=== PATIENT | female | born 1935 | race Caucasian/White ===

== ENCOUNTER 2016-12-19 11:30 | Observation (INO) | payer MEDICARE, BC ==
[2016-12-19] MEDS ORDERED: SODIUM CHLORIDE 0.9% 1,000 ML IV STA (11:44)
[2016-12-19 11:58] LABS: Glucose,Whole Blood 104 mg/dL (75-99)
--- NOTE | 2016-12-19 11:58 | ED ---
General Adult HPI - General Chief complaint: Syncope Stated complaint: Unresponsive Time Seen by Provider: 12/19/16 11:44 Source: patient, family, EMS, RN notes reviewed Mode of arrival: EMS Limitations: no limitations - History of Present Illness Initial comments: Chief complaint and history of present illness an 81-year-old female who was brought emergency room because of syncopal episode. The patient reports she took medications this morning including metoprolol. Medication that she's been taken for bladder issues is Myrbetric. She states that she is to the medications had had a and started to feel weak. Her friend was with her states that she became diaphoretic and passed out. No seizure activity. The patient did not fall is no injury. EMS was called and found her blood pressure to be 60/43 started an IV gave her one half liters prior to coming to the emergency room. The patient also had her blood sugar checked it was 116. This be repeated here. The patient does not have history of diabetes she does have hypertension. This time the patient's feeling better. No pain to the patient have headache, no complaint of palpitations or chest pain or chest pressure. Review of Systems ROS Statement: Those systems with pertinent positive or pertinent negative responses have been documented in the HPI. Review of systems. The patient reports is the third time she has syncopal episode the first time she was on lisinopril. Second time she was on metoprolol. Each time the pain similar to this. At this time the patient's complaining any visual acuity changes no headache no chest pain no palpitations no shortness of breath no GI/ complications at this time. No evidence or complaints of any neuro deficits. All systems are reviewed Past medical problems significant for 2 other syncopal episodes. More recently the patient had intestinal obstruction with surgery and a colostomy bag just 2 months ago. He is on Coumadin because of a DVT that developed while in hospital 2 months ago for intestinal obstruction, which had ruptured. She became septic 2 weeks later which necessitated a second surgery while she was in [place]. Recently the patient physician put her on Myrbetric because of frequency of urination. Other surgeries include appendectomy and hysterectomy, carpal tunnel surgery as well. She's also had cataract surgery. Family history includes mother who had bladder and skin cancer. ALLERGIES; sulfa. The patient will stop the Myrbetric as it may have caused the metoprolol to become more effective in slowing her heart rate and decreased air blood pressure to the point of syncope. The patient was on metoprolol for her second syncopal episode but not her first. Cardiology will be consulted ROS Other: All systems not noted in ROS Statement are negative. Past Medical History Past Medical History: Hypertension, Osteoarthritis (OA) Additional Past Medical History / Comment(s): urinary incontinence, blood clot in right arm History of Any Multi-Drug Resistant Organisms: None Reported Additional Past Surgical History / Comment(s): perforated bowel with colostomy placement 09/09, knee surgery Past Psychological History: No Psychological Hx Reported Smoking Status: Never smoker Past Alcohol Use History: None Reported Past Drug Use History: None Reported General Exam - General Exam Comments Initial Comments: General: The patient is awake and alert, states she is feeling better now. Earlier she has syncopal episode preceded by feeling like she was in a tunnel became diaphoretic and then passed out. Did not hurt herself. No complaint of headache. Vital signs upon arrival to emergency room showed a blood pressure 123/69, pulse 60 respiratory rate 18 pulse ox 97% on 2 L. Blood sugar at bedside 105. In the field was reported to be 113. Eye: Pupils are equal, round and reactive to light, extra-ocular movements are intact ; there is normal conjunctiva bilaterally. No signs of icterus. Evidence of cataract surgery. Ears, nose, mouth and throat: There are moist mucous membranes and no oral lesions. Neck: The neck is supple, there is no tenderness , no JVD, no carotid bruit. Cardiovascular: There is a regular rate and rhythm. No murmur, rub or gallop is appreciated. Respiratory: Lungs are clear to auscultation, respirations are non-labored, breath sounds are equal. No wheezes, stridor, rales, or rhonchi. Gastrointestinal: Soft, non-distended, non-tender abdomen without masses or organomegaly noted. There is no rebound or guarding present. Patient has a functioning colostomy bag. No increase stool production, no vomiting. Back: There is no tenderness to palpation in the midline. There is no obvious deformity. No rashes noted. Musculoskeletal: Normal ROM, no tenderness, There is no pedal edema. There is no calf tenderness or swelling. Sensation intact. Pulses equal bilaterally 2+. Neurological: CN II-XII intact, There are no obvious motor or sensory deficits. Coordination appears grossly intact. Speech is normal. No focal or lateralizing findings Skin: Skin is warm and dry and no rashes or lesions are noted. Limitations: no limitations Course Vital Signs 12/19/16 11:37 Temperature 95.3 F L Pulse Rate 60 Respiratory 18 Rate Blood Pressure 123/64 O2 Sat by Pulse 97 Oximetry EKG Findings - EKG Comments: EKG Findings:: EKG was done and reviewed at 1205 showing normal sinus rhythm no acute ST elevation no ectopy no ischemic changes. Rate 63 NE interval is 162 QRS 82 QT [address] Sheldon Medical Decision Making - Medical Decision Making Medical decision-making. The patient remains alert and oriented while in emergency room. Labs show white count 6.2 hemoglobin 10.9 hematocrit 33. INR is 2.8. The patient is on Coumadin because of a DVT left arm vein that occurred approximately 2 months ago. The patient's potassium is 5.7 , BUN 33 creatinine 0.7 and GFR greater than 60. Glucose 104 The case discussed with Dr. Soriano is not on-call for Dr. Brown. Patient be admitted to his service with consultation from cardiology. - Lab Data Result diagrams: 12/19/16 11:49 12/19/16 11:49 Lab Results 12/19/16 12/19/16 12/19/16 Range/Units 11:49 11:49 11:49 WBC 6.2 (3.8-10.6) k/uL RBC 3.63 L (3.80-5.40) m/uL Hgb 10.9 L (11.4-16.0) gm/dL Hct 33.6 L (34.0-46.0) % MCV 92.6 (80.0-100.0) fL MCH 29.9 (25.0-35.0) pg MCHC 32.3 (31.0-37.0) g/dL RDW 15.3 (11.5-15.5) % Plt Count 272 (150-450) k/uL Neutrophils % 60 % Lymphocytes % 28 % Monocytes % 6 % Eosinophils % 3 % Basophils % 1 % Neutrophils # 3.7 (1.3-7.7) k/uL Lymphocytes # 1.7 (1.0-4.8) k/uL Monocytes # 0.3 (0-1.0) k/uL Eosinophils # 0.2 (0-0.7) k/uL Basophils # 0.1 (0-0.2) k/uL PT 26.5 H (9.0-12.0) sec INR 2.8 (<1.1) APTT 30.9 H (22.0-30.0) sec Sodium 139 (137-145) mmol/L Potassium 5.7 H (3.5-5.1) mmol/L Chloride 108 H (98-107) mmol/L Carbon Dioxide 26 (22-30) mmol/L Anion Gap 5 mmol/L BUN 33 H (7-17) mg/dL Creatinine 0.70 (0.52-1.04) mg/dL Est GFR (MDRD) Af Amer >60 (>60 ml/min/1.73 sqM) Est GFR (MDRD) Non-Af >60 (>60 ml/min/1.73 sqM) Glucose 96 (74-99) mg/dL POC Glucose (mg/dL) (75-99) mg/dL POC Glu Crayon Grader ID Calcium 9.1 (8.4-10.2) mg/dL Magnesium 1.9 (1.6-2.3) mg/dL Total Bilirubin 0.7 (0.2-1.3) mg/dL AST 68 H (14-36) U/L ALT 52 (9-52) U/L Alkaline Phosphatase 111 (38-126) U/L Total Protein 6.6 (6.3-8.2) g/dL Albumin 3.4 L (3.5-5.0) g/dL 12/19/16 Range/Units 11:57 WBC (3.8-10.6) k/uL RBC (3.80-5.40) m/uL Hgb (11.4-16.0) gm/dL Hct (34.0-46.0) % MCV (80.0-100.0) fL MCH (25.0-35.0) pg MCHC (31.0-37.0) g/dL RDW (11.5-15.5) % Plt Count (150-450) k/uL Neutrophils % % Lymphocytes % % Monocytes % % Eosinophils % % Basophils % % Neutrophils # (1.3-7.7) k/uL Lymphocytes # (1.0-4.8) k/uL Monocytes # (0-1.0) k/uL Eosinophils # (0-0.7) k/uL Basophils # (0-0.2) k/uL PT (9.0-12.0) sec INR (<1.1) APTT (22.0-30.0) sec Sodium (137-145) mmol/L Potassium (3.5-5.1) mmol/L Chloride (98-107) mmol/L Carbon Dioxide (22-30) mmol/L Anion Gap mmol/L BUN (7-17) mg/dL Creatinine (0.52-1.04) mg/dL Est GFR (MDRD) Af Amer (>60 ml/min/1.73 sqM) Est GFR (MDRD) Non-Af (>60 ml/min/1.73 sqM) Glucose (74-99) mg/dL POC Glucose (mg/dL) 104 H (75-99) mg/dL POC Glu Crayon Grader ID Sheila Jimenez Calcium (8.4-10.2) mg/dL Magnesium (1.6-2.3) mg/dL Total Bilirubin (0.2-1.3) mg/dL AST (14-36) U/L ALT (9-52) U/L Alkaline Phosphatase (38-126) U/L Total Protein (6.3-8.2) g/dL Albumin (3.5-5.0) g/dL Disposition Clinical Impression: Syncope due to orthostatic hypotension Disposition: ADMITTED IP TO THIS HOSP Condition: Fair
[2016-12-19 12:17] LABS: Basophils # (A) 0.1 k/uL (0-0.2); Basophils % (A) 1 %; CH 29.7; CHCM 32.3; Eosinophils # (A) 0.2 k/uL (0-0.7); Eosinophils % (A) 3 %; HCT 33.6 % (34.0-46.0); HDW 2.39; HGB 10.9 gm/dL (11.4-16.0); Luc # (Auto) 0.21; Luc % (Auto) 3; Lymphocytes # (A) 1.7 k/uL (1.0-4.8); Lymphocytes % (A) 28 %; MCH 29.9 pg (25.0-35.0); MCHC 32.3 g/dL (31.0-37.0); MCV 92.6 fL (80.0-100.0); Mean Platelet Volume 6.8; Monocytes # (A) 0.3 k/uL (0-1.0); Monocytes % (A) 6 %; Neutrophils # (A) 3.7 k/uL (1.3-7.7); Neutrophils % (A) 60 %; RBC 3.63 m/uL (3.80-5.40); RDW 15.3 % (11.5-15.5); WBC 6.2 k/uL (3.8-10.6); WBC (Perox) 6.39
[2016-12-19 12:21] LABS: INR 2.8 (<1.1); Partial Thromboplastin Time 30.9 sec (22.0-30.0); Prothrombin Time 26.5 sec (9.0-12.0)
[2016-12-19 12:23] LABS: ALT 52 U/L (9-52); AST 68 U/L (14-36); Alkaline Phosphatase 111 U/L (38-126); Anion Gap 5 mmol/L; Blood Urea Nitrogen 33 mg/dL (7-17); Calcium 9.1 mg/dL (8.4-10.2); Carbon Dioxide 26 mmol/L (22-30); Chloride 108 mmol/L (98-107); Glucose 96 mg/dL (74-99); Magnesium 1.9 mg/dL (1.6-2.3); Non-African American GFR(MDRD) >60 (>60 ml/min/1.73 sqM); Potassium 5.7 mmol/L (3.5-5.1); Sodium 139 mmol/L (137-145); Total Bilirubin 0.7 mg/dL (0.2-1.3); Total Protein 6.6 g/dL (6.3-8.2)
--- NOTE | 2016-12-19 12:34 | XR ---
EXAMINATION TYPE: XR chest 2V DATE OF EXAM: 12/19/2016 12:28 PM COMPARISON: NONE HISTORY: Syncope and weakness. TECHNIQUE: Frontal and lateral views of the chest are obtained. FINDINGS: There is patchy left basilar linear atelectasis on frontal view. There is small right pleu ral effusion. The cardiac silhouette size is within normal limits. The osseous structures are some what demineralized. IMPRESSION: Small right pleural effusion felt present. Patchy left basilar linear atelectasis is not ed.
[2016-12-19 12:49] LABS: Creatine Kinase 20 U/L (30-135)
[2016-12-19] MEDS ORDERED: NALOXONE 0.4 MG/ML 1 ML VIAL IV PRN (12:50)
[2016-12-19] MEDS ORDERED: ACETAMINOPHEN TAB 325 MG TAB PO PRN (12:50)
[2016-12-19] MEDS ORDERED: SODIUM CHLORIDE 0.9% 1,000 ML IV SCH (13:00)
[2016-12-19 13:02] LABS: Creatine Kinase MB 0.5 ng/mL (0.0-2.4); Troponin I <0.012 ng/mL (0.000-0.034)
[2016-12-19] MEDS ORDERED: DOCUSATE 100 MG CAP PO PRN (15:31)
[2016-12-19] MEDS ORDERED: traMADol 50 MG TAB PO PRN (15:31)
[2016-12-19] MEDS ORDERED: ESTRADIOL 0.5 MG TAB PO SCH (16:00)
--- NOTE | 2016-12-19 17:34 | HP ---
DATE OF ADMISSION: Patient is a very pleasant 81-year-old female, who came into the hospital with an episode of syncope. Patient was talking to someone and at that time patient felt dizzy, lightheaded and patient apparently was told she is pale and diaphoretic and patient had a syncopal episode. Patient was found to have low blood pressure and bradycardia as per the ER physician, although it was not documented here anywhere. Patient was subsequently admitted for syncopal episode. Patient denied any fevers, chills, nausea, vomiting, diarrhea. Patient's chest x-ray did not show any significant abnormality. Of note, I was told that patient had similar episode with metoprolol. Patient here in the hospital had sinus rhythm. ROS: All other systems were reviewed and were negative PAST MEDICAL HISTORY: Significant for DVT for which patient is on Coumadin, hypertension, osteoarthritis, small bowel obstruction with perforation and resection, appendectomy, bowel resection surgery, hysterectomy, joint replacement surgery, congestive heart failure. FAMILY HISTORY: Significant for congestive heart failure. Father of congestive heart failure at age 76. PAST MEDICAL HISTORY: Denied any smoking, alcohol abuse or any drug abuse. Home medications include: Celecoxib, estradiol, multivitamin supplementation, metoprolol, oxybutynin, polyethylene glycol p.r.n. for constipation. The patient takes Coumadin and INR is therapeutic. Tramadol. PHYSICAL EXAMINATION: Temperature 97.5, pulse of 74, respiratory rate of 18, blood pressure is 124/59, saturating at 99% on room air. GENERAL: The patient is alert and oriented x3, not in any acute distress. Well developed, well nourished. HEENT: Pupils are round and equally reacting to light. EOMI. No scleral icterus. No conjunctival pallor. Normocephalic, atraumatic. No pharyngeal erythema. No thyromegaly. CARDIOVASCULAR: S1 and S2 present. No murmurs, rubs, or gallops. PULMONARY: Chest is clear to auscultation, no wheezing or crackles. ABDOMEN: Soft, nontender, nondistended, normoactive bowel sounds. No palpable organomegaly. MUSCULOSKELETAL: No joint swelling or deformity. EXTREMITIES: No cyanosis, clubbing, or pedal edema. NEUROLOGICAL: Gross neurological examination did not reveal any focal deficits. SKIN: No rashes. LABORATORY DATA: CBC, CMP are abnormal for mildly low hemoglobin of 10.1, chronic anemia without any acute GI bleed and needs to be further evaluated as an outpatient. Patient potassium of 5.7, chloride of 108 and BUN of 33. Patient was given a liter bolus after which her blood pressure improved. Chest x-ray did not show any pneumonic process. Did show some minimal pleural effusion. ASSESSMENT AND PLAN: 1. A small right-side pleural effusion. 2. Syncopal episode appears to be related to medication, which is metoprolol. Patient will be watched overnight and echocardiogram will be obtained. 3. Hyperkalemia not sure of the exact etiology. Repeat potassium is still elevated. Will give Kayexalate. Etiology of this hyperkalemia is unknown at this point of time. 4. Hypertension. Holding off antihypertensive, that is metoprolol, because of above-mentioned reasons. 5. History of deep venous thrombosis for which patient is on Coumadin and her INR is therapeutic, which will be continued and repeat INR tomorrow. 6. Chronic low back pain and degenerative joint disease for which Tramadol will be continued. Celebrex will be held. 7. Patient's a primary care physician is Dr[facility]. [facility]
[2016-12-19] MEDS ORDERED: WARFARIN 3 MG TAB PO SCH (18:00)
[2016-12-19 19:01] LABS: Creatine Kinase 33 U/L (30-135)
[2016-12-19 19:12] LABS: Creatine Kinase MB 0.7 ng/mL (0.0-2.4); Troponin I <0.012 ng/mL (0.000-0.034)
[2016-12-19] MEDS: OXYBUTYNIN CHLORIDE 5 MG TAB PO SCH (21:39)
[2016-12-20 00:24] LABS: Creatine Kinase 33 U/L (30-135)
[2016-12-20 00:37] LABS: Creatine Kinase MB 0.6 ng/mL (0.0-2.4); Troponin I <0.012 ng/mL (0.000-0.034)
[2016-12-20 03:55] VITALS: RESP 16
--- NOTE | 2016-12-20 07:48 | P.CRDCN ---
History of Present Illness Consult date: 12/20/16 Chief complaint: Syncope History of present illness: This is a pleasant 81-year-old female patient with a past medical history significant for hypertension was brought to the hospital after she had syncope. The patient was in her usual state of health when she was sitting at home with a friend when suddenly she had to flush and warm feeling and then she lost her consciousness. She does not recall having any chest pain or discomfort or difficulty in breathing or heart racing or fluttering around episode. She is not aware of any prior history of coronary artery disease or any cardiac arrhythmia and never seen any field service tech. In the ER, the patient was found to be bradycardic. Please note that the patient was receiving metoprolol at 100 mg by mouth twice a day. The metoprolol was stopped. The EKG showed sinus rhythm without any ischemic changes. The cardiac enzymes came in to be unremarkable as well. I agree about stopping the metoprolol. I am going to start the patient on lisinopril. She was ruled out for acute coronary event. Her potassium was found to be elevated which also could be contributing to her bradycardia beside the metoprolol. Agree about obtaining an echocardiogram was Doppler as well. Past Medical History Past Medical History: Deep Vein Thrombosis (DVT), Hypertension, Osteoarthritis ( OA) Additional Past Medical History / Comment(s): SBO with perforation/resection and colostomy 09/2016 in [place], urinary incontinence since surgery in September 2016, DVT in right arm, osteoarthritis multiple joints. History of Any Multi-Drug Resistant Organisms: None Reported Past Surgical History: Appendectomy, Bowel Resection, Hysterectomy, Joint Replacement, Orthopedic Surgery Additional Past Surgical History / Comment(s): perforated bowel with colostomy placement 10/10 in [place], [place], L total knee surgery, bilateral cataract removal with lens implants, bilateral carpal tunnel releases, colonoscopy. Past Anesthesia/Blood Transfusion Reactions: No Reported Reaction Additional Past Anesthesia/Blood Transfusion Reaction / Comment(s): Pt received blood with bowel resection. Past Psychological History: No Psychological Hx Reported Additional Psychological History / Comment(s): Pt resides with her partner. She uses a cane to ambulate. She has a computer graphic artist. She normally drives. She is still recovering from a bowel resection/colostomy done in September 2016. She robin in [facility]. and returned to [place] last week. Smoking Status: Never smoker Past Alcohol Use History: None Reported Past Drug Use History: None Reported - Past Family History Father Family Medical History: Congestive Heart Failure (CHF) Additional Family Medical History / Comment(s): Father of CHF at the age of 76yrs. Mother Family Medical History: No Reported History Additional Family Medical History / Comment(s): Mother was healthy and lived to be 95yrs old. Medications and Allergies Home Medications Medication Instructions Recorded Confirmed Type Antioxidant 1 cap PO DAILY 12/19/16 12/19/16 History Celecoxib [CeleBREX] 200 mg PO DAILY PRN 12/19/16 12/19/16 History Docusate [Colace] 100 mg PO BID PRN 12/19/16 12/19/16 History Estradiol [Estrace] 0.5 mg PO MOWEFR 12/19/16 12/19/16 History Five Alive Multivitamin 1 tab PO DAILY 12/19/16 12/19/16 History Metoprolol Tartrate [Lopressor] 100 mg PO BID-W/MEALS 12/19/16 12/19/16 History Oxybutynin Chloride [Ditropan] 5 mg PO BID 12/19/16 12/19/16 History Polyethylene Glycol 3350 [Miralax] 17 gm PO DAILY 12/19/16 12/19/16 History Warfarin [Coumadin] 3 mg PO DAILY 12/19/16 12/19/16 History traMADol HCL [Ultram] 50 mg PO Q6H PRN 12/19/16 12/19/16 History Allergies Allergy/AdvReac Type Severity Reaction Status Date / Time Sulfa (Sulfonamide AdvReac ITCHING/SWE Verified 12/19/16 13:06 Antibiotics) LLING Physical Exam Vitals: Vital Signs Temp Pulse Pulse Resp BP BP Pulse Ox 12/20/16 07:38 97.4 F L 83 16 136/64 95 12/20/16 04:00 80 16 12/20/16 03:54 98.4 F 80 16 117/59 93 L 12/20/16 00:00 18 12/19/16 23:42 77 18 131/62 94 L 12/19/16 20:00 97.7 F 75 18 135/60 96 12/19/16 14:09 97.5 F L 75 18 141/68 99 12/19/16 13:27 96.8 F L 740 H 14 124/59 100 Intake and Output 12/19/16 12/20/16 12/20/16 22:59 06:59 14:59 Other: Voiding Method Toilet Toilet Diaper Diaper # Voids 2 2 - Constitutional General appearance: no acute distress - Respiratory Respiratory: bilateral: CTA - Cardiovascular Rhythm: regular Heart sounds: normal: S1, S2 Results 12/19/16 11:49 12/19/16 15:46 Cardiac Enzymes 12/19/16 12/19/16 Range/Units 18:26 23:35 CK-MB (CK-2) 0.7 0.6 (0.0-2.4) ng/mL Troponin I <0.012 <0.012 (0.000-0.034) ng/mL Comprehensive Metabolic Panel 12/19/16 Range/Units 15:46 Potassium 4.9 (3.5-5.1) mmol/L Current Medications Generic Name Dose Route Start Last Admin Trade Name Freq PRN Reason Stop Dose Admin Acetaminophen 650 mg 12/19/16 12:50 Tylenol Tab PO Q6HR PRN Mild Pain or Fever > 100.5 Docusate Sodium 100 mg 12/19/16 15:31 Colace PO BID PRN Constipation Estradiol 0.5 mg 12/19/16 16:00 12/19/16 17:10 Estrace PO 0.5 mg MOWEFR TONIE Administration Sodium Chloride 1,000 mls @ 100 mls/hr 12/19/16 13:00 12/19/16 17:08 Saline 0.9% IV Not Given .Q10H TOINE Naloxone HCl 0.2 mg 12/19/16 12:50 Narcan IV Q2M PRN Opioid Reversal Oxybutynin Chloride 5 mg 12/19/16 21:00 12/19/16 21:39 Ditropan PO Not Given BID TONIE Polyethylene Glycol 17 gm 12/20/16 09:00 Miralax PO DAILY TONIE Tramadol HCl 50 mg 12/19/16 15:31 Ultram PO Q6H PRN Moderate Pain Warfarin Sodium 3 mg 12/19/16 18:00 12/19/16 17:09 Coumadin PO Not Given DAILY@1800 TONIE Intake and Output 12/19/16 12/20/16 12/20/16 22:59 06:59 14:59 Other: Voiding Method Toilet Toilet Diaper Diaper # Voids 2 2 12/19/16 15:46 Assessment and Plan Plan: Assessment Syncope likely related to bradycardia Hyperkalemia of unknown etiology Systemic hypertension Plan Agree to DC the metoprolol I will start the patient on lisinopril Agree to obtain an echocardiogram was Doppler Follow-up with the patient
[2016-12-20] MEDS ORDERED: POLYETHYLENE GLYCOL 3350 17 GM POWD.PACK PO SCH (09:00)
[2016-12-20] MEDS: OXYBUTYNIN CHLORIDE 5 MG TAB PO SCH (09:00)
[2016-12-20] MEDS ORDERED: LISINOPRIL 5 MG TAB PO SCH (09:00)
--- NOTE | 2016-12-20 09:49 | ECHOF ---
Referral Reason:syncope MEASUREMENTS -------- HEIGHT: 157.5 cm WEIGHT: 60.8 kg BP: IVSd: 1.2 cm (0.6 - 1.1) LVIDd: 2.8 cm (3.9 - 5.3) LVPWd: 1.4 cm (0.6 - 1.1) IVSs: 1.6 cm LVIDs: 1.0 cm LVPWs: 1.2 cm Ao Diam: 2.8 cm (2.0 - 3.7) AV Cusp: 1.9 cm (1.5 - 2.6) LA Diam: 2.7 cm (2.7 - 3.8) MV EXCURSION: 14.881 mm (> 18.000) MV EF SLOPE: 71 mm/s (70 - 150) EPSS: 0.5 cm MV E Cresencio: 0.72 m/s MV DecT: 236 ms MV A Cresencio: 0.49 m/s MV E/A Ratio: 1.46 RAP: 5.00 mmHg RVSP: 9.13 mmHg FINDINGS -------- Sinus rhythm. This was a technically good study. There is mild concentric left ventricular hypertrophy. Overall left ventricular systolic function is normal with, an EF between 55 - 60 %. The diastolic filling pattern is normal for the age of the patient 11.31. The right ventricle is normal in size and function. The left atrium is normal in size. The right atrium is normal in size. Aortic valve is trileaflet and is mildly thickened. The mitral valve leaflets are mildly thickened. Mild mitral regurgitation is present. Mild tricuspid regurgitation present. The right ventricular systolic pressure, as measured by Doppler, is 9.13mmHg. Pulmonic valve appears structurally normal. The aortic root size is normal. The pericardium is normal. CONCLUSIONS -------- 1. Sinus rhythm. 2. The mitral valve leaflets are mildly thickened. 3. Mild mitral regurgitation is present. 4. Mild tricuspid regurgitation present. 5. The right ventricular systolic pressure, as measured by Doppler, is 9.13mmHg. 6. Pulmonic valve appears structurally normal. 7. The aortic root size is normal. 8. The pericardium is normal. 9. This was a technically good study. 10. There is mild concentric left ventricular hypertrophy. 11. Overall left ventricular systolic function is normal with, an EF between 55 - 60 %. 12. The diastolic filling pattern is normal for the age of the patient 11.31 13. The right ventricle is normal in size and function. 14. The left atrium is normal in size. 15. The right atrium is normal in size. 16. Aortic valve is trileaflet and is mildly thickened. CASING SOAKER: Ling Felix RDCS
[2016-12-20 11:11] LABS: Appearance,Urine Clear (Clear); Bacteria,Urine Many /hpf; Bilirubin,Urine Negative (Negative); Glucose,Urine (UA) Negative (Negative); Ketones,Urine Negative (Negative); Leukocyte Esterase,Urine Trace (Negative); Nitrite,Urine Negative (Negative); Particle Count 969; Protein,Urine Negative (Negative); RBC,Urine 1 /hpf (0-5); Specific Gravity,Urine 1.003 (1.001-1.035); Squamous Epithelial Cell,Urine <1 /hpf (0-4); UA Billing (MACRO vs. MICRO) MICRO; Urobilinogen,Urine <2.0 mg/dL (<2.0); WBC,Urine 9 /hpf (0-5)
[2016-12-20 11:33] VITALS: BP 138/66; PULSE 80; TEMP 97
--- NOTE | 2017-01-13 10:38 | DS ---
DATE OF ADMISSION: 12/19/2016 DATE OF DISCHARGE: 12/20/2016 DATE OF SERVICE: 12/20/2016 Patient was admitted for syncopal episode secondary to metoprolol, which improved after discontinuation of medication and patient also had hyperkalemia, improved with Kayexalate, etiology is unknown. Patient was monitored overnight and patient underwent echocardiogram, which did not show any significant abnormality. Patient was subsequently discharged. Please refer to the depart summary for further details of discharge medications. DISCHARGE DIET: Cardiac. Activity as tolerated. Follow up with Dr. Brown in 3 [address] Sullivan on as-needed basis.
== END 2016-12-20 15:55 | disposition home or self-care (01) ==
LOC: EC 11:30 → 3OBS 12:51 → 3SUR 19:01
PROVIDERS: ADMIT Internal Medicine; ATTEND Internal Medicine
DX: R55 Syncope and collapse (principal); E87.5 Hyperkalemia; I11.0 Hypertensive heart disease with heart failure; I50.9 Heart failure, unspecified; M15.9 Polyosteoarthritis, unspecified; G89.29 Other chronic pain; M54.5 Low back pain; Z86.718 Personal history of other venous thrombosis and embolism; Z93.3 Colostomy status; Z88.2 Allergy status to sulfonamides; Z79.899 Other long term (current) drug therapy; Z79.1 Long term (current) use of non-steroidal anti-inflammatories (NSAID); Z79.01 Long term (current) use of anticoagulants; R00.1 Bradycardia, unspecified; T44.7X5A Adverse effect of beta-adrenoreceptor antagonists, initial encounter
CPT/HCPCS: 96360; 96361; 99285; 36415; 93005; 93306; 80053; 82550; 82553; 83735; 84132; 84484; 85025; 85610; 85730; 81001; 71020; G0378 ×2; A4425

== ENCOUNTER → 2017-01-07 | Outpatient (CLI) | payer MEDICARE, BC | END | disposition home or self-care (01) | LOC: RADECHMAIN 12:16 | PROVIDERS: ATTEND Family Medicine | DX: I47.1 Supraventricular tachycardia (principal) | CPT/HCPCS: 93225; 93226 ==

== ENCOUNTER 2020-03-27 12:19 | Emergency (ER) | payer MEDICARE, BC ==
[2020-03-27 12:25] VITALS: TEMP 98
--- NOTE | 2020-03-27 12:36 | ED ---
General Adult HPI - General Chief complaint: Back Pain/Injury Stated complaint: back pain Time Seen by Provider: 03/27/20 12:26 Source: patient, RN notes reviewed, old records reviewed Mode of arrival: wheelchair Limitations: no limitations - History of Present Illness Initial comments: 84 yo female with 3 days of lower back pain. Patient's pain is predominantly on the right although she states it is traveling to the left side of her low back. She denies trauma. She states she has intermittently had back pain over the past several years however typically this is relieved after a couple days of Tylenol and Aleve. She has been taking these medications without significant relief. She denies fever. Denies abdominal pain. Denies vomiting or diarrhea. Denies dysuria but states she has had some urinary frequency. - Related Data Home Medications Medication Instructions Recorded Confirmed Antioxidant 1 cap PO DAILY 12/19/16 12/19/16 Celecoxib [CeleBREX] 200 mg PO DAILY PRN 12/19/16 12/19/16 Docusate [Colace] 100 mg PO BID PRN 12/19/16 12/19/16 Five Alive Multivitamin 1 tab PO DAILY 12/19/16 12/19/16 Oxybutynin Chloride [Ditropan] 5 mg PO BID 12/19/16 12/19/16 Polyethylene Glycol 3350 [Miralax] 17 gm PO DAILY 12/19/16 12/19/16 Warfarin [Coumadin] 3 mg PO DAILY 12/19/16 12/19/16 estradioL [Estrace] 0.5 mg PO MOWEFR 12/19/16 12/19/16 traMADol HCL [Ultram] 50 mg PO Q6H PRN 12/19/16 12/19/16 Previous Rx's Medication Instructions Recorded Cephalexin [Keflex] 500 mg PO Q6HR 10 Days #40 cap 03/27/20 Allergies Allergy/AdvReac Type Severity Reaction Status Date / Time Sulfa (Sulfonamide AdvReac ITCHING/SWE Verified 12/19/16 13:06 Antibiotics) LLING Review of Systems ROS Statement: Those systems with pertinent positive or pertinent negative responses have been documented in the HPI. ROS Other: All systems not noted in ROS Statement are negative. Past Medical History Past Medical History: Deep Vein Thrombosis (DVT), Hypertension, Osteoarthritis (OA) Additional Past Medical History / Comment(s): SBO with perforation/resection and colostomy 09/2016 in [place], urinary incontinence since surgery in September 2016, DVT in right arm, osteoarthritis multiple joints. History of Any Multi-Drug Resistant Organisms: None Reported Past Surgical History: Appendectomy, Bowel Resection, Hysterectomy, Joint Replacement, Orthopedic Surgery Additional Past Surgical History / Comment(s): perforated bowel with colostomy placement 10/10 in [place], [place], L total knee surgery, bilateral cataract removal with lens implants, bilateral carpal tunnel releases, colonoscopy. Past Anesthesia/Blood Transfusion Reactions: No Reported Reaction Additional Past Anesthesia/Blood Transfusion Reaction / Comment(s): Pt received blood with bowel resection. Past Psychological History: No Psychological Hx Reported Smoking Status: Never smoker Past Alcohol Use History: None Reported Past Drug Use History: None Reported - Past Family History Father Family Medical History: Congestive Heart Failure (CHF) Additional Family Medical History / Comment(s): Father of CHF at the age of 76yrs. Mother Family Medical History: No Reported History Additional Family Medical History / Comment(s): Mother was healthy and lived to be 95yrs old. General Exam Limitations: no limitations General appearance: alert, in no apparent distress Head exam: Present: atraumatic, normocephalic Eye exam: Present: normal appearance, PERRL ENT exam: Present: normal exam Neck exam: Present: normal inspection. Absent: tenderness, meningismus Respiratory exam: Present: normal lung sounds bilaterally. Absent: respiratory distress, wheezes Cardiovascular Exam: Present: regular rate, normal rhythm GI/Abdominal exam: Present: soft. Absent: distended, tenderness, guarding, rebound Extremities exam: Present: normal inspection, normal capillary refill. Absent: pedal edema Back exam: Present: CVA tenderness (R), paraspinal tenderness. Absent: vertebral tenderness Neurological exam: Present: alert, oriented X3, CN II-XII intact. Absent: motor sensory deficit Psychiatric exam: Present: normal affect, normal mood Skin exam: Present: warm, dry, intact. Absent: cyanosis, diaphoretic Course Vital Signs 03/27/20 03/27/20 12:22 13:59 Temperature 98.0 F 98.0 F Pulse Rate 86 89 Respiratory 17 18 Rate Blood Pressure 135/71 139/67 O2 Sat by Pulse 97 96 Oximetry Medical Decision Making - Medical Decision Making 84-year-old female presenting for evaluation of flank pain. No injury. Patient is ambulatory. No lower extremity symptoms. Patient has urinary frequency, no hour bladder incontinence. Her vital signs are stable upon arrival. She has right CVA tenderness on exam. KUB x-ray. She's has some fecal retention, no acute findings on KUB, lumbar x-ray shows scoliosis and disc disease. Her urine is positive for nitrate as well as 46 white cells and many bacteria. For this is likely related to urinary tract infection. She has a normal CBC, normal CMP. She's given Toradol and ceftriaxone in the emergency department awaiting urine culture results. She will be prescribed antibiotics will continue Tylenol and Aleve at home and will return with worsening or changing symptoms. - Lab Data Result diagrams: 03/27/20 12:54 03/27/20 12:54 Lab Results 03/27/20 03/27/20 03/27/20 Range/Units 12:54 12:54 13:18 WBC 5.9 (3.8-10.6) k/uL RBC 4.11 (3.80-5.40) m/uL Hgb 12.2 (11.4-16.0) gm/dL Hct 38.4 (34.0-46.0) % MCV 93.3 (80.0-100.0) fL MCH 29.6 (25.0-35.0) pg MCHC 31.7 (31.0-37.0) g/dL RDW 13.5 (11.5-15.5) % Plt Count 233 (150-450) k/uL Neutrophils % 85 % Lymphocytes % 8 % Monocytes % 4 % Eosinophils % 1 % Basophils % 1 % Neutrophils # 5.0 (1.3-7.7) k/uL Lymphocytes # 0.5 L (1.0-4.8) k/uL Monocytes # 0.2 (0-1.0) k/uL Eosinophils # 0.1 (0-0.7) k/uL Basophils # 0.0 (0-0.2) k/uL Sodium 138 (137-145) mmol/L Potassium 4.4 (3.5-5.1) mmol/L Chloride 107 (98-107) mmol/L Carbon Dioxide 25 (22-30) mmol/L Anion Gap 6 mmol/L BUN 37 H (7-17) mg/dL Creatinine 0.88 (0.52-1.04) mg/dL Est GFR (CKD-EPI)AfAm 71 (>60 ml/min/1.73 sqM) Est GFR (CKD-EPI)NonAf 61 (>60 ml/min/1.73 sqM) Glucose 117 H (74-99) mg/dL Calcium 9.6 (8.4-10.2) mg/dL Total Bilirubin 0.5 (0.2-1.3) mg/dL AST 31 (14-36) U/L ALT 18 (4-34) U/L Alkaline Phosphatase 105 (38-126) U/L Total Protein 6.9 (6.3-8.2) g/dL Albumin 4.0 (3.5-5.0) g/dL Urine Color Yellow Urine Appearance Clear (Clear) Urine pH 5.5 (5.0-8.0) Ur Specific [place] 1.021 (1.001-1.035) Urine Protein Negative (Negative) Urine Glucose (UA) Negative (Negative) Urine Ketones 1+ H (Negative) Urine Blood Trace H (Negative) Urine Nitrite Positive H (Negative) Urine Bilirubin Negative (Negative) Urine Urobilinogen <2.0 (<2.0) mg/dL Ur Leukocyte Esterase Moderate H (Negative) Urine RBC 10 H (0-5) /hpf Urine WBC 46 H (0-5) /hpf Ur Squamous Epith Cells 1 (0-4) /hpf Urine Bacteria Many H (None) /hpf Urine Mucus Occasional H (None) /hpf Disposition Clinical Impression: UTI (urinary tract infection), Low back pain Disposition: HOME SELF-CARE Condition: Good Instructions (If sedation given, give patient instructions): Acute Low Back Pain (ED), Urinary Tract Infection in Women (DC) Prescriptions: Cephalexin [Keflex] 500 mg PO Q6HR 10 Days #40 cap Is patient prescribed a controlled substance at d/c from ED?: No Referrals: Kerrie Whitmore MD [Primary Care Provider] - 1-2 days Time of Disposition: 14:06
[2020-03-27 13:07] LABS: Basophils % (A) 1 %; Eosinophils # (A) 0.1 k/uL (0-0.7); Eosinophils % (A) 1 %; HCT 38.4 % (34.0-46.0); HGB 12.2 gm/dL (11.4-16.0); Lymphocytes # (A) 0.5 k/uL (1.0-4.8); Lymphocytes % (A) 8 %; MCH 29.6 pg (25.0-35.0); MCHC 31.7 g/dL (31.0-37.0); MCV 93.3 fL (80.0-100.0); Monocytes # (A) 0.2 k/uL (0-1.0); Monocytes % (A) 4 %; Neutrophils % (A) 85 %; Platelet Count 233 k/uL (150-450); RBC 4.11 m/uL (3.80-5.40); RDW 13.5 % (11.5-15.5); WBC 5.9 k/uL (3.8-10.6)
[2020-03-27 13:17] LABS: Calcium 9.6 mg/dL (8.4-10.2); Potassium 4.4 mmol/L (3.5-5.1); Total Bilirubin 0.5 mg/dL (0.2-1.3); Total Protein 6.9 g/dL (6.3-8.2)
--- NOTE | 2020-03-27 13:41 | XR ---
EXAMINATION TYPE: XR KUB DATE OF EXAM: 03/27/2020 COMPARISON: None INDICATION: Flank pain TECHNIQUE: Single view abdomen supine view FINDINGS: There is a normal bowel gas pattern. Moderate fecal retention is through the colon. Psoas margins are normal. No organomegaly is present. Scoliosis is present. Multiple surgical clips are within the pelvis and right flank. No suspicious ca lcifications are evident. IMPRESSION: 1. Nonspecific abdomen. Some mild fecal retention is present.
[2020-03-27 13:46] LABS: Appearance,Urine Clear (Clear); Bacteria,Urine Many /hpf; Bilirubin,Urine Negative (Negative); Blood,Urine Trace (Negative); Color,Urine Yellow; Glucose,Urine (UA) Negative (Negative); Ketones,Urine 1+ (Negative); Leukocyte Esterase,Urine Moderate (Negative); Mucus,Urine Occasional /hpf; Nitrite,Urine Positive (Negative); PH, Urine 5.5 (5.0-8.0); Protein,Urine Negative (Negative); RBC,Urine 10 /hpf (0-5); Specific Gravity,Urine 1.021 (1.001-1.035); Squamous Epithelial Cell,Urine 1 /hpf (0-4); Urobilinogen,Urine <2.0 mg/dL (<2.0); WBC,Urine 46 /hpf (0-5)
--- NOTE | 2020-03-27 13:49 | XR ---
EXAMINATION TYPE: XR lumbosacral spine min 4V DATE OF EXAM: 03/27/2020 COMPARISON: None HISTORY: Back pain TECHNIQUE: Five-view lumbar spine FINDINGS: There is a scoliosis present. Convexity is to the left. There 5 lumbar-type vertebral brian s. Vertebral body heights are preserved. There is loss of disc height throughout the lumbar spine. No spondylolisthesis is evident. IMPRESSION: 1. Scoliosis. 2. Degenerative disc changes.
[2020-03-27] MEDS ORDERED: KETOROLAC 30 MG/ML 1 ML VIAL IVP STA (13:52)
[2020-03-27] MEDS ORDERED: cefTRIAXone IN SWFI 1,000 MG/10 ML SYRINGE IVP STA (13:52)
[2020-03-27 14:02] VITALS: BP 139/67; PULSE 89; RESP 18
== END 2020-03-27 14:35 | disposition home or self-care (01) ==
LOC: EC 12:19
DX: N39.0 Urinary tract infection, site not specified (principal); K59.00 Constipation, unspecified; M41.9 Scoliosis, unspecified; M51.36 Other intervertebral disc degeneration, lumbar region; I10 Essential (primary) hypertension; Z79.01 Long term (current) use of anticoagulants; Z79.899 Other long term (current) drug therapy; Z88.2 Allergy status to sulfonamides; Z86.718 Personal history of other venous thrombosis and embolism
CPT/HCPCS: 36415; 80053; 85025; 81001; 87086; 72110; 74018; 99284; 96374; 96375; J0696; J1885

== ENCOUNTER 2020-03-31 21:48 | Emergency (ER) | payer MEDICARE, BC ==
[2020-03-31 21:56] VITALS: RESP 18
--- NOTE | 2020-03-31 22:17 | ED ---
General Adult HPI - General Chief complaint: Recheck/Abnormal Lab/Rx Stated complaint: SOB,Headache Time Seen by Provider: 03/31/20 22:03 Source: patient, family Mode of arrival: wheelchair Limitations: no limitations - History of Present Illness Initial comments: This patient is an 84-year-old woman who presents to be evaluated for a constellation of symptoms. The patient states that she started having some urinary frequency and dysuria last week. She was seen here on Thursday and I was diagnosed with urinary tract infection. She was started on course of antibiotics, and states that it was irritating her stomach. She went and saw her primary physician Dr. Whitmore, who changed her antibiotic. The patient states that since that time she has been having mild, generalized headache. She has been having some diffuse Abdominal pain. She has been having watery diarrhea. She has been nauseated but no vomiting. -: days(s) Location: head, abdomen Quality: dull Consistency: constant Improves with: none Worsens with: none Associated Symptoms: nausea/vomiting Treatments Prior to Arrival: other (Course of antibiotics) - Related Data Home Medications Medication Instructions Recorded Confirmed Oxybutynin Chloride [Ditropan] 5 mg PO BID 12/19/16 03/31/20 Acetaminophen Tab [Tylenol Tab] 1,000 mg PO Q6HR PRN 03/31/20 03/31/20 [id number] 2 tab PO DAILY 03/31/20 03/31/20 [Excedrin] Nitrofurantoin Monohyd/M-Cryst 100 mg PO Q12HR 03/31/20 03/31/20 [Macrobid] Omeprazole 20 mg PO DAILY 03/31/20 03/31/20 Allergies Allergy/AdvReac Type Severity Reaction Status Date / Time Sulfa (Sulfonamide AdvReac ITCHING/SWE Verified 03/31/20 22:31 Antibiotics) LLING Review of Systems ROS Statement: Those systems with pertinent positive or pertinent negative responses have been documented in the HPI. ROS Other: All systems not noted in ROS Statement are negative. Constitutional: Reports: weakness (Neurologic). Denies: fever, chills Respiratory: Denies: cough, dyspnea Cardiovascular: Denies: chest pain, palpitations, edema Gastrointestinal: Reports: as per HPI, abdominal pain, nausea, diarrhea. Denies: vomiting, melena, hematochezia Genitourinary: Denies: dysuria, frequency, hematuria Musculoskeletal: Denies: back pain Skin: Denies: rash Neurological: Reports: headache. Denies: weakness, numbness, confusion Past Medical History Past Medical History: Deep Vein Thrombosis (DVT), Hypertension, Osteoarthritis (OA) Additional Past Medical History / Comment(s): SBO with perforation/resection and colostomy 09/2016 in [place], urinary incontinence since surgery in September 2016, DVT in right arm, osteoarthritis multiple joints. History of Any Multi-Drug Resistant Organisms: None Reported Past Surgical History: Appendectomy, Bowel Resection, Hysterectomy, Joint Replacement, Orthopedic Surgery Additional Past Surgical History / Comment(s): perforated bowel with colostomy placement 10/10 in [place], [place], L total knee surgery, bilateral cataract removal with lens implants, bilateral carpal tunnel releases, colonoscopy. Past Anesthesia/Blood Transfusion Reactions: No Reported Reaction Additional Past Anesthesia/Blood Transfusion Reaction / Comment(s): Pt received blood with bowel resection. Past Psychological History: No Psychological Hx Reported Smoking Status: Never smoker Past Alcohol Use History: None Reported Past Drug Use History: None Reported - Past Family History Father Family Medical History: Congestive Heart Failure (CHF) Additional Family Medical History / Comment(s): Father of CHF at the age of 76yrs. Mother Family Medical History: No Reported History Additional Family Medical History / Comment(s): Mother was healthy and lived to be 95yrs old. General Exam Limitations: no limitations General appearance: alert, in no apparent distress Head exam: Present: atraumatic, normocephalic Eye exam: Present: normal appearance. Absent: scleral icterus, conjunctival injection ENT exam: Present: normal oropharynx Neck exam: Present: normal inspection Respiratory exam: Present: normal lung sounds bilaterally. Absent: respiratory distress, wheezes, rales, rhonchi, stridor Cardiovascular Exam: Present: normal rhythm, tachycardia, normal heart sounds. Absent: systolic murmur, diastolic murmur, rubs, gallop GI/Abdominal exam: Present: soft. Absent: distended, tenderness, guarding, rebound, rigid, mass, pulsatile mass, hernia Extremities exam: Present: normal inspection, normal capillary refill. Absent: pedal edema, calf tenderness Back exam: Present: normal inspection. Absent: CVA tenderness (R), CVA tenderness (L) Neurological exam: Present: alert Skin exam: Present: warm, dry, intact, normal color. Absent: rash Course Vital Signs 03/31/20 03/31/20 04/01/20 21:50 23:08 00:34 Temperature 98.2 F 99.2 F Pulse Rate 107 H 101 H 96 Respiratory 18 18 18 Rate Blood Pressure 112/64 115/55 96/56 O2 Sat by Pulse 97 95 96 Oximetry EKG Findings - EKG Results: EKG: interpreted by ERMD, sinus rhythm (With PAC, rate 100), normal axis, normal ST/T - Blocks, [place], Hypertrophy, ST Abn: AV and intraventricular conduction: right bundle branch block (fixed/intermittent, complete/incomplete) Medical Decision Making - Medical Decision Making Patient is an 84-year-old woman presenting with abdominal discomfort, nausea, diarrhea, after taking antibiotics for urinary tract infection. Discussed the results with patient and offered admission for further symptom control, but she states that she is now feeling much better and would like to go home. She believes that she is not tolerating the antibiotic that she was changed to. We discussed appropriate further care and follow-up related to the transaminases and bilirubin level. Patient will return here if she has recurrence of symptoms or any new symptoms develop. - Lab Data Result diagrams: 03/31/20 22:38 03/31/20 22:38 Lab Results 03/31/20 03/31/20 03/31/20 Range/Units 22:38 22:38 22:38 WBC 11.1 H (3.8-10.6) k/uL RBC 4.15 (3.80-5.40) m/uL Hgb 12.4 (11.4-16.0) gm/dL Hct 39.4 (34.0-46.0) % MCV 95.0 (80.0-100.0) fL MCH 29.9 (25.0-35.0) pg MCHC 31.5 (31.0-37.0) g/dL RDW 13.7 (11.5-15.5) % Plt Count 215 (150-450) k/uL Neutrophils % 88 % Lymphocytes % 4 % Monocytes % 3 % Eosinophils % 4 % Basophils % 0 % Neutrophils # 9.8 H (1.3-7.7) k/uL Lymphocytes # 0.4 L (1.0-4.8) k/uL Monocytes # 0.3 (0-1.0) k/uL Eosinophils # 0.4 (0-0.7) k/uL Basophils # 0.0 (0-0.2) k/uL PT (9.0-12.0) sec INR (<1.2) APTT (22.0-30.0) sec Sodium 134 L (137-145) mmol/L Potassium 4.7 (3.5-5.1) mmol/L Chloride 105 (98-107) mmol/L Carbon Dioxide 21 L (22-30) mmol/L Anion Gap 8 mmol/L BUN 26 H (7-17) mg/dL Creatinine 0.92 (0.52-1.04) mg/dL Est GFR (CKD-EPI)AfAm 67 (>60 ml/min/1.73 sqM) Est GFR (CKD-EPI)NonAf 58 (>60 ml/min/1.73 sqM) Glucose 108 H (74-99) mg/dL Calcium 9.7 (8.4-10.2) mg/dL Total Bilirubin 3.2 H (0.2-1.3) mg/dL AST 232 H (14-36) U/L ALT 232 H (4-34) U/L Alkaline Phosphatase 288 H (38-126) U/L Troponin I (0.000-0.034) ng/mL Total Protein 6.6 (6.3-8.2) g/dL Albumin 3.6 (3.5-5.0) g/dL Amylase <30 L (30-110) U/L Lipase 99 (23-300) U/L Urine Color Dark Yellow Urine Appearance Clear (Clear) Urine pH 6.5 (5.0-8.0) Ur Specific [place] 1.020 (1.001-1.035) Urine Protein 1+ H (Negative) Urine Glucose (UA) Negative (Negative) Urine Ketones 1+ H (Negative) Urine Blood Small H (Negative) Urine Nitrite Negative (Negative) Urine Bilirubin 1+ H (Negative) Urine Urobilinogen 3.0 (<2.0) mg/dL Ur Leukocyte Esterase Negative (Negative) Urine RBC 25 H (0-5) /hpf Urine WBC 4 (0-5) /hpf Ur Squamous Epith Cells <1 (0-4) /hpf Hyaline Casts 1 (0-2) /lpf Urine Mucus Rare H (None) /hpf 03/31/20 03/31/20 Range/Units 22:38 22:45 WBC (3.8-10.6) k/uL RBC (3.80-5.40) m/uL Hgb (11.4-16.0) gm/dL Hct (34.0-46.0) % MCV (80.0-100.0) fL MCH (25.0-35.0) pg MCHC (31.0-37.0) g/dL RDW (11.5-15.5) % Plt Count (150-450) k/uL Neutrophils % % Lymphocytes % % Monocytes % % Eosinophils % % Basophils % % Neutrophils # (1.3-7.7) k/uL Lymphocytes # (1.0-4.8) k/uL Monocytes # (0-1.0) k/uL Eosinophils # (0-0.7) k/uL Basophils # (0-0.2) k/uL PT 11.1 (9.0-12.0) sec INR 1.1 (<1.2) APTT 28.8 (22.0-30.0) sec Sodium (137-145) mmol/L Potassium (3.5-5.1) mmol/L Chloride (98-107) mmol/L Carbon Dioxide (22-30) mmol/L Anion Gap mmol/L BUN (7-17) mg/dL Creatinine (0.52-1.04) mg/dL Est GFR (CKD-EPI)AfAm (>60 ml/min/1.73 sqM) Est GFR (CKD-EPI)NonAf (>60 ml/min/1.73 sqM) Glucose (74-99) mg/dL Calcium (8.4-10.2) mg/dL Total Bilirubin (0.2-1.3) mg/dL AST (14-36) U/L ALT (4-34) U/L Alkaline Phosphatase (38-126) U/L Troponin I <0.012 (0.000-0.034) ng/mL Total Protein (6.3-8.2) g/dL Albumin (3.5-5.0) g/dL Amylase (30-110) U/L Lipase (23-300) U/L Urine Color Urine Appearance (Clear) Urine pH (5.0-8.0) Ur Specific [place] (1.001-1.035) Urine Protein (Negative) Urine Glucose (UA) (Negative) Urine Ketones (Negative) Urine Blood (Negative) Urine Nitrite (Negative) Urine Bilirubin (Negative) Urine Urobilinogen (<2.0) mg/dL Ur Leukocyte Esterase (Negative) Urine RBC (0-5) /hpf Urine WBC (0-5) /hpf Ur Squamous Epith Cells (0-4) /hpf Hyaline Casts (0-2) /lpf Urine Mucus (None) /hpf Disposition Clinical Impression: Abdominal pain, Elevated transaminase measurement Disposition: HOME SELF-CARE Condition: Good Instructions (If sedation given, give patient instructions): Abdominal Pain (ED) Additional Instructions: As we discussed, follow with your physician, or return here to have the liver tests rechecked to ensure that they are returning towards normal. If you are feeling worse in anyway, or if Symptoms are returning, return to the emergency department Is patient prescribed a controlled substance at d/c from ED?: No Referrals: Kerrie Whitmore MD [Primary Care Provider] - 1-2 days
[2020-03-31 22:52] LABS: Basophils % (A) 0 %; Eosinophils # (A) 0.4 k/uL (0-0.7); Eosinophils % (A) 4 %; HCT 39.4 % (34.0-46.0); HGB 12.4 gm/dL (11.4-16.0); Lymphocytes # (A) 0.4 k/uL (1.0-4.8); Lymphocytes % (A) 4 %; MCH 29.9 pg (25.0-35.0); MCHC 31.5 g/dL (31.0-37.0); Mean Platelet Volume 7.7; Monocytes # (A) 0.3 k/uL (0-1.0); Monocytes % (A) 3 %; Neutrophils # (A) 9.8 k/uL (1.3-7.7); Neutrophils % (A) 88 %; Platelet Count 215 k/uL (150-450); RBC 4.15 m/uL (3.80-5.40); RDW 13.7 % (11.5-15.5); WBC 11.1 k/uL (3.8-10.6)
[2020-03-31 23:00] LABS: Appearance,Urine Clear (Clear); Bilirubin,Urine 1+ (Negative); Blood,Urine Small (Negative); Color,Urine Dark Yellow; Glucose,Urine (UA) Negative (Negative); Hyaline Casts,Urine 1 /lpf (0-2); Ketones,Urine 1+ (Negative); Leukocyte Esterase,Urine Negative (Negative); Mucus,Urine Rare /hpf; Nitrite,Urine Negative (Negative); PH, Urine 6.5 (5.0-8.0); Protein,Urine 1+ (Negative); RBC,Urine 25 /hpf (0-5); Squamous Epithelial Cell,Urine <1 /hpf (0-4); WBC,Urine 4 /hpf (0-5)
[2020-03-31 23:07] LABS: INR 1.1 (<1.2); Partial Thromboplastin Time 28.8 sec (22.0-30.0); Prothrombin Time 11.1 sec (9.0-12.0)
[2020-03-31 23:10] VITALS: TEMP 99.2
[2020-03-31 23:10] LABS: ALT 232 U/L (4-34); AST 232 U/L (14-36); African American GFR (CKD) 67 (>60 ml/min/1.73 sqM); Albumin 3.6 g/dL (3.5-5.0); Alkaline Phosphatase 288 U/L (38-126); Amylase <30 U/L (30-110); Anion Gap 8 mmol/L; Blood Urea Nitrogen 26 mg/dL (7-17); Calcium 9.7 mg/dL (8.4-10.2); Carbon Dioxide 21 mmol/L (22-30); Chloride 105 mmol/L (98-107); Glucose 108 mg/dL (74-99); Lipase 99 U/L (23-300); Non-African American GFR(CKD) 58 (>60 ml/min/1.73 sqM); Sodium 134 mmol/L (137-145); Total Bilirubin 3.2 mg/dL (0.2-1.3); Total Protein 6.6 g/dL (6.3-8.2)
[2020-03-31 23:11] LABS: Potassium 4.7 mmol/L (3.5-5.1)
[2020-04-01 00:36] VITALS: BP 96/56; PULSE 96
--- NOTE | 2020-04-01 00:45 | US ---
EXAMINATION TYPE: US abdomen limited DATE OF EXAM: 04/01/2020 COMPARISON: CLINICAL HISTORY: attention RUQ. RUQ pain, N EXAM MEASUREMENTS: Liver Length: 13.0 cm Gallbladder Wall: 0.2 cm CBD: 0.7 cm Right Kidney: 9.9 x 4.3 x 3.4 cm Pancreas: Appears echogenic and heterogenous. Liver: wnl Gallbladder: wnl Evidence for sonographic Tariq's sign: neg CBD: wnl Right Kidney: No hydronephrosis or masses seen IMPRESSION: No gallstones or dilated ducts. Intrahepatic bile ducts appear normal. No focal liver defect.
== END 2020-04-01 01:57 | disposition home or self-care (01) ==
LOC: EC 21:48
DX: R74.0 Nonspecific elevation of levels of transaminase and lactic acid dehydrogenase [LDH] (principal); R10.9 Unspecified abdominal pain; I10 Essential (primary) hypertension; R19.7 Diarrhea, unspecified; R06.02 Shortness of breath; R11.0 Nausea; R51 Headache; M19.90 Unspecified osteoarthritis, unspecified site; Z79.82 Long term (current) use of aspirin; Z79.899 Other long term (current) drug therapy; Z88.2 Allergy status to sulfonamides; Z87.440 Personal history of urinary (tract) infections; Z20.828 Contact with and (suspected) exposure to other viral communicable diseases
CPT/HCPCS: 36415; 93005; 80053; 82150; 83690; 84484; 85025; 85610; 85730; 81001; 76705; 99285; U0003

== ENCOUNTER → 2020-04-09 | Outpatient (CLI) | payer MEDICARE, BC ==
[2020-04-09 17:34] LABS: Basophils # (A) 0.1 k/uL (0-0.2); Basophils % (A) 1 %; Eosinophils # (A) 0.4 k/uL (0-0.7); Eosinophils % (A) 6 %; HCT 40.3 % (34.0-46.0); HGB 12.3 gm/dL (11.4-16.0); Hypochromasia Moderate; Lymphocytes # (A) 1.5 k/uL (1.0-4.8); Lymphocytes % (A) 25 %; MCH 29.8 pg (25.0-35.0); MCHC 30.4 g/dL (31.0-37.0); Mean Platelet Volume 8.9; Monocytes # (A) 0.4 k/uL (0-1.0); Monocytes % (A) 7 %; Neutrophils # (A) 3.3 k/uL (1.3-7.7); Neutrophils % (A) 56 %; Platelet Count 354 k/uL (150-450); RBC 4.12 m/uL (3.80-5.40); WBC 5.9 k/uL (3.8-10.6)
[2020-04-09 23:54] LABS: African American GFR (CKD) 60.3 (60.0-200.0); Albumin 3.9 g/dL (3.80-4.90); Albumin/Globulin Ratio 1.56 (1.60-3.17); Anion Gap 6.8 mmol/L (4.00-12.00); Carbon Dioxide 27.2 mmol/L (21.6-31.8); Globulin 2.5 g/dL (1.6-3.3); Non-African American GFR(CKD) 52.1 (60.0-200.0); Potassium 4.9 mmol/L (3.5-5.5); Total Bilirubin 0.6 mg/dL (0.2-1.2); Total Protein 6.4 g/dL (6.2-8.2)
== END | disposition home or self-care (01) ==
LOC: LABWHC1 13:27
PROVIDERS: ATTEND Physician Assistant Medical
DX: R94.5 Abnormal results of liver function studies (principal)
CPT/HCPCS: 36415; 80053; 85025

== ENCOUNTER 2020-06-06 08:25 | Day surgery (SDC) | payer MEDICARE, BC ==
[2020-06-01 13:05] VITALS: BMI 27.3
[~2020-06-06 08:25] MED LIST: ACETAMINOPHEN TAB 500 MG TAB PO ONE; DEXAMETHASONE SOD PHOSPHATE 10 MG/ML 1 ML VIAL IV ONE; HEPARIN SODIUM,PORCINE 5,000 UNIT/ML 1 ML VIAL SQ ONE; HYDROmorphone 0.5 MG/0.5 ML SYRINGE IVP PRN; LACTATED RINGERS 1,000 ML IV SCH; LIDOCAINE 1% (10MG/ML) FOR IV START INTRADERMA PRN; MIDAZOLAM 2 MG/2 ML VIAL IV PRN; ONDANSETRON 4 MG/2 ML VIAL IVP ONE; Pre Op ABX Message 1 EACH MISC MISCELLANE ONE
[2020-06-06 08:56] VITALS: TEMP 98.2
--- NOTE | 2020-06-06 09:38 | P.GSHP ---
History of Present Illness H&P Date: 06/06/20 Chief Complaint: Squamous cell carcinoma right lower extremity This 84-year-old female who presents today for excision of a squamous cell carcinoma right lower extremity. Patient is a 2.5 cm irregular raised skin lesion. This is been previously biopsied and found to be a squamous cell carcinoma. Past Medical History Past Medical History: Cancer, Deep Vein Thrombosis (DVT), GERD/Reflux, GI Bleed, Osteoarthritis (OA), Skin Disorder Additional Past Medical History / Comment(s): Urinary incontinence. Hx DVT in right arm. "Have tiny bumps all over my skin. Hx small bowel perforation. Current right leg skin cancer. History of Any Multi-Drug Resistant Organisms: None Reported Past Surgical History: Appendectomy, Bowel Resection, Hysterectomy, Joint Replac ement, Orthopedic Surgery Additional Past Surgical History / Comment(s): Perforated bowel with colostomy placement, colostomy reversed, left total knee replacement, bilateral cataract removal with lens implants, bilateral carpal tunnel releases, colonoscopy. Past Anesthesia/Blood Transfusion Reactions: No Reported Reaction Additional Past Anesthesia/Blood Transfusion Reaction / Comment(s): Pt received blood with bowel resection. Past Psychological History: No Psychological Hx Reported Smoking Status: Never smoker Past Alcohol Use History: None Reported Past Drug Use History: None Reported - Past Family History Father Family Medical History: Congestive Heart Failure (CHF) Additional Family Medical History / Comment(s): Father of CHF at the age of 76yrs. Mother Family Medical History: Cancer, Deep Vein Thrombosis (DVT) Additional Family Medical History / Comment(s): Mother was healthy and lived to be 95yrs old. Melanoma. Medications and Allergies Home Medications Medication Instructions Recorded Confirmed Type Oxybutynin Chloride [Ditropan] 5 mg PO BID 12/19/16 06/06/20 History [id number] 2 tab PO DAILY 03/31/20 06/06/20 History [Excedrin] Omeprazole 20 mg PO QAM 03/31/20 06/06/20 History Allergies Allergy/AdvReac Type Severity Reaction Status Date / Time Sulfa (Sulfonamide AdvReac ITCHING/SWE Verified 06/06/20 08:58 Antibiotics) LLING OPOID AdvReac Unknown Uncoded 06/06/20 08:59 Surgical - Exam Vital Signs Temp Pulse Resp BP Pulse Ox 98.2 F 97 18 145/69 98 06/06/20 08:54 06/06/20 08:54 06/06/20 08:54 06/06/20 08:54 06/06/20 08:54 - General well developed, well nourished, no distress - Eyes PERRL - ENT normal pinna - Neck no masses - Respiratory normal expansion - Cardiovascular Rhythm: regular - Abdomen Abdomen: soft, non tender - Integumentary 2.5 cm squamous cell carcinoma right lower extremity Assessment and Plan Assessment: Squamous cell carcinoma reduction. We'll perform wide local excision.
[2020-06-06] MEDS ORDERED: MIDAZOLAM 2 MG/2 ML VIAL ONE (09:55)
[2020-06-06] MEDS ORDERED: PROPOFOL 10 MG/ML 20 ML VIAL IV ONE (09:55)
[2020-06-06] MEDS ORDERED: KETAMINE 10 MG/ML 20 ML VIAL ONE (09:55)
[2020-06-06] MEDS ORDERED: BUPIVACAINE (PF) 0.25% 30 ML VIAL SQ ONE (09:58)
--- NOTE | 2020-06-06 10:29 | P.OP ---
Date of Procedure: 06/06/20 Preoperative Diagnosis: Squamous cell carcinoma right lower extremity Postoperative Diagnosis: Squamous cell carcinoma right lower extremity Procedure(s) Performed: Wide local excision of squamous cell carcinoma right lower extremity Anesthesia: MAC Surgeon: Low Jewell Estimated Blood Loss (ml): 10 Pathology: other (Squamous cell carcinoma suture tag superior) Condition: stable Disposition: PACU Description of Procedure: The patient's placed on the operative table in the supine position. She received IV sedation. Her right lower extremity was prepped and draped usual fashion. The area was anesthetized 1% local Xylocaine. Elliptical skin incision was made around the squamous cell carcinoma. The specimen measured 3 x 6 cm. The Bovie was used for hemostasis. The specimen was excised pathology. The suture tag was placed superiorly. The skin was closed with interrupted mattress sutures and then a running baseball stitch was placed over top of this this is performed with 2-0 nylon. Patient top she will was sent to recovery in stable condition.
[2020-06-06 10:36] VITALS: RESP 16
[2020-06-06 11:42] VITALS: PULSE 73
[2020-06-06 12:28] VITALS: BP 115/74
== END 2020-06-06 12:54 | disposition home or self-care (01) ==
LOC: OR 08:25
PROVIDERS: ATTEND Surgery
DX: C44.722 Squamous cell carcinoma of skin of right lower limb, including hip (principal); M19.90 Unspecified osteoarthritis, unspecified site; K21.9 Gastro-esophageal reflux disease without esophagitis; Z86.718 Personal history of other venous thrombosis and embolism; R32 Unspecified urinary incontinence; Z87.19 Personal history of other diseases of the digestive system; Z90.49 Acquired absence of other specified parts of digestive tract; Z90.710 Acquired absence of both cervix and uterus; Z96.652 Presence of left artificial knee joint; Z98.42 Cataract extraction status, left eye; Z98.41 Cataract extraction status, right eye; Z96.1 Presence of intraocular lens; Z98.890 Other specified postprocedural states; Z82.49 Family history of ischemic heart disease and other diseases of the circulatory system; Z80.9 Family history of malignant neoplasm, unspecified; Z79.82 Long term (current) use of aspirin; Z79.899 Other long term (current) drug therapy; Z88.5 Allergy status to narcotic agent; Z88.2 Allergy status to sulfonamides
CPT/HCPCS: 11606; 88305; J2250; J1644; J1100; J2405; J2704; J1170

== ENCOUNTER → 2024-02-11 | Outpatient (CLI) | payer MEDICARE, BC ==
--- NOTE | 2024-02-12 11:33 | CA ---
Transthoracic Echo Report Name: Nova Clifton Age: 88 Gender: F : 1935 Exam Date: 02/11/2024 13:23 Exam Location: [facility] Ht (in): 60 Wt (lb): 138 Ordering Physician: James Cantu DO Attending/Referring Phys: James Cantu DO Production Team Member Yessenia Wagner, YESI Procedure CPT: Indications: M79.89 leg swelling Cardiac Hx: Technical Quality: Fair Contrast 1: Total Dose (mL): Contrast 2: Total Dose (mL): MEASUREMENTS (Male / Female) Normal Values 2D ECHO LV Diastolic Diameter PLAX 3.2 cm 4.2 - 5.9 / 3.9 - 5.3 cm LV Systolic Diameter PLAX 1.6 cm IVS Diastolic Thickness 1.0 cm 0.6 - 1.0 / 0.6 - 0.9 cm LVPW Diastolic Thickness 1.0 cm 0.6 - 1.0 / 0.6 - 0.9 cm LV Relative Wall Thickness 0.6 RV Internal Dim ED PLAX 3.3 cm LA Volume 34.1 cm??? 18 - 58 / 22 - 52 cm??? LA Volume Index 20.7 cm???/m??? 16 - 28 cm???/m??? M-MODE Aortic Root Diameter MM 3.0 cm LA Systolic Diameter MM 3.8 cm LA Ao Ratio MM 1.3 AV Cusp Separation MM 1.9 cm DOPPLER AV Peak Velocity 120.3 cm/s AV Peak Gradient 5.8 mmHg AV Mean Velocity 87.6 cm/s AV Mean Gradient 3.4 mmHg AV Velocity Time Integral 19.3 cm LVOT Peak Velocity 79.7 cm/s LVOT Peak Gradient 2.5 mmHg LVOT Velocity Time Integral 13.1 cm MV Area PHT 3.1 cm??? Mitral E Point Velocity 37.9 cm/s Mitral A Point Velocity 67.0 cm/s Mitral E to A Ratio 0.6 MV Deceleration Time 246.5 ms MV E' Velocity 7.0 cm/s Mitral E to MV E' Ratio 5.4 TR Peak Velocity 201.5 cm/s TR Peak Gradient 16.2 mmHg Right Ventricular Systolic Press 20.2 mmHg FINDINGS Left Ventricle Normal Left ventricular size, wall thickness, systolic function with no obvious regional wall motion abnormalities. Normal Left ventricular diastolic filling pattern. Left ventricular ejection fraction is estimated at 55-60 %. Right Ventricle Normal right ventricular size and function. Right ventricular systolic pressure within normal limits. Right Atrium Normal right atrial size. Left Atrium Normal left atrial size. Mitral Valve Structurally normal mitral valve. Mitral valve thickened. Mild mitral annular calcification. Mild mitral regurgitation. Aortic Valve Trileaflet aortic valve. No aortic valve stenosis or regurgitation. Tricuspid Valve Structurally normal tricuspid valve. Mild tricuspid regurgitation. Pulmonic Valve Structurally normal pulmonic valve. Trace pulmonic regurgitation. Pericardium No pericardial effusion. Aorta Normal size aortic root and proximal ascending aorta. CONCLUSIONS Normal biventricular dimension and systolic function No significant valvular abnormalities Normal pulmonary artery systolic pressure Previewed by: Dr. Manuel Sullivan MD (Electronically Signed) Final Date: 12 February 2024 11:33
== END | disposition home or self-care (01) ==
LOC: RADECHMAIN 13:16
PROVIDERS: ATTEND Internal Medicine
DX: M79.89 Other specified soft tissue disorders (principal)
CPT/HCPCS: 93306